=== PATIENT | male | born 1955 | race Caucasian/White ===

== ENCOUNTER 2020-11-07 19:48 | Emergency (ER) | payer OTHER ==
[~2020-11-07] VITALS: Ht 172.7 cm; Wt 106.6 kg
[2020-11-07] MEDS ORDERED: ACETAMINOPHEN 325 MG TAB PO ONE (20:45)
[2020-11-07] MEDS ORDERED: ACETAMINOPHEN 325 MG TAB ONE (20:47)
[2020-11-09] MEDS ORDERED: ESIDRIX25 MG PO (18:59)
[2020-11-09] MEDS ORDERED: LOPRESSOR25 MG PO (18:59)
[2020-11-09] MEDS ORDERED: ATORVASTATIN CA20 MG PO (18:59)
[2020-11-09] MEDS ORDERED: LOSARTAN POTAS100 MG PO (18:59)
[2020-11-09] MEDS ORDERED: METFORMIN HCL500 MG PO (18:59)
== END 2020-11-08 00:15 | disposition home or self-care (01) ==
LOC: ER 20:33
DX: R50.9 Fever, unspecified (principal); R05 Cough; U07.1 COVID-19; I10 Essential (primary) hypertension; E11.9 Type 2 diabetes mellitus without complications; E78.5 Hyperlipidemia, unspecified
CPT/HCPCS: 99283

== ENCOUNTER 2020-11-09 15:00 | Inpatient (IN) | payer OTHER ==
[~2020-11-09] VITALS: Ht 172.7 cm; Wt 102.7 kg
[2020-11-09] MEDS ORDERED: DEXAMETHASONE SOD PHOS INJ 4 MG/ML SDV IV ONE (15:45)
[2020-11-09 16:04] LABS: BASOPHILS % 0.2 % (0.0-1.0); HEMATOCRIT 42.2 % (38.2-49.6); LYMPHOCYTES # (AUTO) 1.2 (1.0-3.2); MEAN CORPUSCULAR HEMOGLOBIN 29.8 pg (28-32); MEAN CORPUSCULAR HGB CONC 35.5 g/dL (31-35); MEAN CORPUSCULAR VOLUME 83.7 fL (81-99); MONOCYTES # (AUTO) 0.5 (0.2-0.8); NEUTROPHILS # (AUTO) 7.7 (2.1-6.9); NEUTROPHILS % 81.2 % (38.7-80.0); PLATELET COUNT 224 x10e3/uL (140-360); RED BLOOD COUNT 5.04 x10e6/uL (4.3-5.7); RED CELL DISTRIBUTION WIDTH 12.1 % (11.7-14.4)
[2020-11-09 16:31] LABS: ALBUMIN 3.2 g/dL (3.5-5.0); ANION GAP 15.9 mmol/L (8-16); CALCIUM 8.5 mg/dL (8.4-10.2); CREATININE, SERUM 0.75 mg/dL (0.72-1.25)
[2020-11-09 16:35] LABS: ALBUMIN/GLOBULIN RATIO 0.9 (0.8-2.0); POTASSIUM 2.9 mmol/L (3.5-5.1)
[2020-11-09] MEDS ORDERED: POTASSIUM CHLORIDE 20 MEQ TAB CR PO STA (16:46)
[2020-11-09] MEDS ORDERED: LOSARTAN POTAS100 MG PO (18:59)
[2020-11-09] MEDS ORDERED: ESIDRIX25 MG PO (18:59)
[2020-11-09] MEDS ORDERED: LOPRESSOR25 MG PO (18:59)
[2020-11-09] MEDS ORDERED: METFORMIN HCL500 MG PO (18:59)
[2020-11-09] MEDS ORDERED: ATORVASTATIN CA20 MG PO (18:59)
[2020-11-10] VITALS (8 sets, daily range): BP systolic 135–167; BP diastolic 79–101
[2020-11-10] MEDS ORDERED: HYDRALAZINE HCL 20 MG/ML VIAL IV PRN (00:15)
[2020-11-10] MEDS ORDERED: PNEUMOCOCCAL VACCINE POLYVALENT 23 MCG/0.5 ML VIAL IM ONE (00:59)
[2020-11-10 07:12] LABS: BASOPHILS % 0.3 % (0.0-1.0); HEMATOCRIT 42.4 % (38.2-49.6); HEMOGLOBIN 15.2 g/dL (14.0-18.0); LYMPHOCYTES # (AUTO) 1.1 (1.0-3.2); LYMPHOCYTES % 11.8 % (18.0-39.1); MEAN CORPUSCULAR HEMOGLOBIN 29.6 pg (28-32); MEAN CORPUSCULAR HGB CONC 35.8 g/dL (31-35); MEAN CORPUSCULAR VOLUME 82.7 fL (81-99); MONOCYTES # (AUTO) 0.6 (0.2-0.8); MONOCYTES % 5.7 % (4.4-11.3); NEUTROPHILS # (AUTO) 7.8 (2.1-6.9); NEUTROPHILS % 81.3 % (38.7-80.0); PLATELET COUNT 202 x10e3/uL (140-360); RED BLOOD COUNT 5.13 x10e6/uL (4.3-5.7); RED CELL DISTRIBUTION WIDTH 11.8 % (11.7-14.4)
[2020-11-10 07:45] LABS: ALBUMIN 3.1 g/dL (3.5-5.0); ANION GAP 16.5 mmol/L (8-16); CALCIUM 8.7 mg/dL (8.4-10.2); CREATININE, SERUM 0.69 mg/dL (0.72-1.25); POTASSIUM 3.5 mmol/L (3.5-5.1)
[2020-11-10] MEDS ORDERED: ALBUTEROL SULFATE HFA 8GM INHALATION AEROSOL INH PRN (09:45)
[2020-11-10] MEDS ORDERED: DEXTROSE 50% SYRINGE 50 ML IV PRN (09:45)
[2020-11-10] MEDS ORDERED: BENZONATATE 100 MG CAP PO PRN (09:45)
[2020-11-10] MEDS ORDERED: HYDRALAZINE HCL 25 MG TAB PO PRN (09:45)
[2020-11-10] MEDS: FAMOTIDINE 20 MG/2 ML VIAL IV SCH ×2 (09:45→17:21)
[2020-11-10] MEDS ORDERED: ACETAMINOPHEN 325 MG TAB PO PRN (09:45)
[2020-11-10] MEDS ORDERED: ONDANSETRON HCL INJ 2MG/ML 2ML 2 MG/ML VIAL IV PRN (09:45)
[2020-11-10] MEDS ORDERED: ASCORBIC ACID 500 MG TAB PO SCH (10:30)
[2020-11-10] MEDS: METOPROLOL TARTRATE 25 MG TAB PO SCH ×2 (10:30→17:22)
[2020-11-10] MEDS: CHOLECALCIFEROL 1,000 UNIT TAB PO SCH (10:30)
[2020-11-10] MEDS: CEFTRIAXONE 1 GM in SODIUM CHLORIDE 0.9% 50ML 50 ML IV SCH ×2 (10:30→20:49)
[2020-11-10] MEDS ORDERED: DEXAMETHASONE SOD PHOS INJ 4 MG/ML SDV IV SCH (10:30)
[2020-11-10] MEDS ORDERED: SODIUM CHLORIDE 0.9% 50ML 50 ML ONE (10:41)
[2020-11-10] MEDS ORDERED: ZINC SULFATE 220 MG CAP PO SCH (11:00)
[2020-11-10] MEDS: INSULIN LISPRO 100 UNIT/1 ML 3ML VIAL SQ SCH ×3 (11:30→20:50)
[2020-11-10] MEDS ORDERED: REMDESIVIR 200MG 200 MG IV ONE (16:30)
[2020-11-10] MEDS: ENOXAPARIN SOD INJ 40 MG/0.4 ML SYR SC SCH (17:00)
[2020-11-10] MEDS: ASCORBIC ACID 500 MG TAB PO SCH (17:00)
[2020-11-10] MEDS: ATORVASTATIN 20 MG TAB PO SCH (20:49)
[2020-11-10] MEDS: INSULIN GLARGINE 100 UNITS/ML VIAL SQ SCH (20:50)
[2020-11-10] MEDS: IPRATROPIUM BROMIDE INHALER 12.9 GM INH INH SCH ×2 (21:25→21:27)
[2020-11-11] VITALS (10 sets, daily range): BP systolic 123–157; BP diastolic 78–98
[2020-11-11 05:52] LABS: BASOPHILS % 0.2 % (0.0-1.0); HEMATOCRIT 40.7 % (38.2-49.6); HEMOGLOBIN 14.2 g/dL (14.0-18.0); LYMPHOCYTES # (AUTO) 1.5 (1.0-3.2); LYMPHOCYTES % 13.6 % (18.0-39.1); MEAN CORPUSCULAR HEMOGLOBIN 29.3 pg (28-32); MEAN CORPUSCULAR HGB CONC 34.9 g/dL (31-35); MEAN CORPUSCULAR VOLUME 84.1 fL (81-99); MONOCYTES # (AUTO) 0.8 (0.2-0.8); MONOCYTES % 7.5 % (4.4-11.3); NEUTROPHILS # (AUTO) 8.6 (2.1-6.9); NEUTROPHILS % 77.5 % (38.7-80.0); PLATELET COUNT 225 x10e3/uL (140-360); RED BLOOD COUNT 4.84 x10e6/uL (4.3-5.7); RED CELL DISTRIBUTION WIDTH 11.9 % (11.7-14.4)
[2020-11-11 06:19] LABS: ANION GAP 14.4 mmol/L (8-16); CALCIUM 8.3 mg/dL (8.4-10.2); CREATININE, SERUM 0.77 mg/dL (0.72-1.25); POTASSIUM 3.4 mmol/L (3.5-5.1)
[2020-11-11] MEDS: ALBUTEROL SULFATE HFA 8GM INHALATION AEROSOL INH SCH ×3 (07:15→19:57)
[2020-11-11] MEDS: IPRATROPIUM BROMIDE INHALER 12.9 GM INH INH SCH ×3 (07:15→19:57)
[2020-11-11] MEDS: INSULIN LISPRO 100 UNIT/1 ML 3ML VIAL SQ SCH ×4 (07:30→20:20)
[2020-11-11] MEDS: CEFTRIAXONE 1 GM in SODIUM CHLORIDE 0.9% 50ML 50 ML IV SCH ×2 (09:51→21:00)
[2020-11-11] MEDS: FAMOTIDINE 20 MG/2 ML VIAL IV SCH ×2 (09:53→18:17)
[2020-11-11] MEDS: LOSARTAN POTASSIUM 25 MG TAB PO SCH (09:54)
[2020-11-11] MEDS: ASCORBIC ACID 500 MG TAB PO SCH ×2 (09:55→18:17)
[2020-11-11] MEDS: METOPROLOL TARTRATE 25 MG TAB PO SCH ×2 (09:55→18:17)
[2020-11-11] MEDS: ZINC SULFATE 50 MG CAP PO SCH (09:55)
[2020-11-11] MEDS: CHOLECALCIFEROL 1,000 UNIT TAB PO SCH (09:55)
[2020-11-11] MEDS: DEXAMETHASONE 4 MG TAB PO SCH (09:55)
[2020-11-11] MEDS ORDERED: POTASSIUM CHLORIDE 10MEQ EA PO ONE (10:30)
[2020-11-11] MEDS ORDERED: SODIUM CHLORIDE 0.9% 50ML 50 ML ONE (11:15)
[2020-11-11] MEDS ORDERED: IOPAMIDOL 370 MG/ML 200 ML INFUS..BTL INJ ONE (11:16)
[2020-11-11] MEDS: REMDESIVIR 100MG 100 MG IV SCH (16:02)
[2020-11-11] MEDS: ENOXAPARIN SOD INJ 40 MG/0.4 ML SYR SC SCH (18:17)
[2020-11-11] MEDS: ATORVASTATIN 20 MG TAB PO SCH (21:00)
[2020-11-11] MEDS: INSULIN GLARGINE 100 UNITS/ML VIAL SQ SCH (21:00)
[2020-11-12] VITALS (8 sets, daily range): BP systolic 127–179; BP diastolic 77–98
[2020-11-12] MEDS: IPRATROPIUM BROMIDE INHALER 12.9 GM INH INH SCH ×4 (01:02→21:35)
[2020-11-12] MEDS: ALBUTEROL SULFATE HFA 8GM INHALATION AEROSOL INH SCH ×4 (01:02→18:00)
[2020-11-12 06:50] LABS: BASOPHILS % 0.2 % (0.0-1.0); EOSINOPHILS % 0.1 % (0.0-6.0); HEMATOCRIT 38.6 % (38.2-49.6); HEMOGLOBIN 13.5 g/dL (14.0-18.0); LYMPHOCYTES # (AUTO) 1.7 (1.0-3.2); LYMPHOCYTES % 14.6 % (18.0-39.1); MEAN CORPUSCULAR HEMOGLOBIN 29.5 pg (28-32); MEAN CORPUSCULAR VOLUME 84.5 fL (81-99); MONOCYTES % 8.3 % (4.4-11.3); NEUTROPHILS # (AUTO) 8.6 (2.1-6.9); NEUTROPHILS % 74.8 % (38.7-80.0); PLATELET COUNT 168 x10e3/uL (140-360); RED BLOOD COUNT 4.57 x10e6/uL (4.3-5.7); RED CELL DISTRIBUTION WIDTH 11.9 % (11.7-14.4)
[2020-11-12 07:26] LABS: ALBUMIN 2.8 g/dL (3.5-5.0); ANION GAP 13.5 mmol/L (8-16); CALCIUM 7.9 mg/dL (8.4-10.2); CREATININE, SERUM 0.7 mg/dL (0.72-1.25); POTASSIUM 3.5 mmol/L (3.5-5.1)
[2020-11-12] MEDS: INSULIN LISPRO 100 UNIT/1 ML 3ML VIAL SQ SCH ×4 (07:30→20:17)
[2020-11-12] MEDS: FAMOTIDINE 20 MG/2 ML VIAL IV SCH ×2 (08:51→17:17)
[2020-11-12] MEDS: CEFTRIAXONE 1 GM in SODIUM CHLORIDE 0.9% 50ML 50 ML IV SCH ×2 (08:52→20:24)
[2020-11-12] MEDS: LOSARTAN POTASSIUM 25 MG TAB PO SCH (08:52)
[2020-11-12] MEDS: ZINC SULFATE 50 MG CAP PO SCH (08:53)
[2020-11-12] MEDS: DEXAMETHASONE 4 MG TAB PO SCH (08:53)
[2020-11-12] MEDS: ASCORBIC ACID 500 MG TAB PO SCH ×2 (08:53→17:17)
[2020-11-12] MEDS: CHOLECALCIFEROL 1,000 UNIT TAB PO SCH (08:53)
[2020-11-12] MEDS: METOPROLOL TARTRATE 25 MG TAB PO SCH ×2 (08:53→17:17)
[2020-11-12] MEDS: HYDROCHLOROTHIAZIDE 25 MG TAB PO SCH (14:24)
[2020-11-12] MEDS: REMDESIVIR 100MG 100 MG IV SCH (17:17)
[2020-11-12] MEDS: ENOXAPARIN SOD INJ 40 MG/0.4 ML SYR SC SCH (17:17)
[2020-11-12] MEDS: ATORVASTATIN 20 MG TAB PO SCH (20:25)
[2020-11-12] MEDS: INSULIN GLARGINE 100 UNITS/ML VIAL SQ SCH (20:30)
[2020-11-12] MEDS ORDERED: SODIUM CHLORIDE 0.9% 250ML 250 ML ONE (20:51)
[2020-11-13] VITALS (7 sets, daily range): BP systolic 117–154; BP diastolic 70–95
[2020-11-13] MEDS: ALBUTEROL SULFATE HFA 8GM INHALATION AEROSOL INH SCH ×4 (01:08→18:04)
[2020-11-13] MEDS: IPRATROPIUM BROMIDE INHALER 12.9 GM INH INH SCH ×4 (02:37→20:19)
[2020-11-13 07:07] LABS: BASOPHILS # (AUTO) 0.1 (0.0-0.1); BASOPHILS % 0.5 % (0.0-1.0); EOSINOPHILS % 0.2 % (0.0-6.0); HEMATOCRIT 42.3 % (38.2-49.6); HEMOGLOBIN 14.6 g/dL (14.0-18.0); LYMPHOCYTES # (AUTO) 1.8 (1.0-3.2); LYMPHOCYTES % 13.6 % (18.0-39.1); MEAN CORPUSCULAR HEMOGLOBIN 29.9 pg (28-32); MEAN CORPUSCULAR HGB CONC 34.5 g/dL (31-35); MEAN CORPUSCULAR VOLUME 86.7 fL (81-99); MONOCYTES # (AUTO) 1.1 (0.2-0.8); MONOCYTES % 8.4 % (4.4-11.3); NEUTROPHILS # (AUTO) 9.7 (2.1-6.9); NEUTROPHILS % 74.9 % (38.7-80.0); PLATELET COUNT 181 x10e3/uL (140-360); RED BLOOD COUNT 4.88 x10e6/uL (4.3-5.7); RED CELL DISTRIBUTION WIDTH 11.9 % (11.7-14.4)
[2020-11-13] MEDS: INSULIN LISPRO 100 UNIT/1 ML 3ML VIAL SQ SCH ×4 (07:30→21:00)
[2020-11-13 07:31] LABS: ALBUMIN 2.8 g/dL (3.5-5.0); ALBUMIN/GLOBULIN RATIO 0.9 (0.8-2.0); CALCIUM 8.2 mg/dL (8.4-10.2); CREATININE, SERUM 0.74 mg/dL (0.72-1.25)
[2020-11-13] MEDS: DEXAMETHASONE 4 MG TAB PO SCH (09:01)
[2020-11-13] MEDS: FAMOTIDINE 20 MG/2 ML VIAL IV SCH ×2 (09:01→16:51)
[2020-11-13] MEDS: LOSARTAN POTASSIUM 25 MG TAB PO SCH (09:01)
[2020-11-13] MEDS: CEFTRIAXONE 1 GM in SODIUM CHLORIDE 0.9% 50ML 50 ML IV SCH ×2 (09:01→21:57)
[2020-11-13] MEDS: METOPROLOL TARTRATE 25 MG TAB PO SCH ×2 (09:02→16:52)
[2020-11-13] MEDS: ASCORBIC ACID 500 MG TAB PO SCH ×2 (09:02→16:52)
[2020-11-13] MEDS: HYDROCHLOROTHIAZIDE 25 MG TAB PO SCH (09:02)
[2020-11-13] MEDS: CHOLECALCIFEROL 1,000 UNIT TAB PO SCH (09:02)
[2020-11-13] MEDS: ZINC SULFATE 50 MG CAP PO SCH (09:03)
[2020-11-13] MEDS: REMDESIVIR 100MG 100 MG IV SCH (14:25)
[2020-11-13] MEDS: ENOXAPARIN SOD INJ 40 MG/0.4 ML SYR SC SCH (16:52)
[2020-11-13] MEDS: ATORVASTATIN 20 MG TAB PO SCH (21:57)
[2020-11-13] MEDS: INSULIN GLARGINE 100 UNITS/ML VIAL SQ SCH (21:58)
[2020-11-14] VITALS (7 sets, daily range): BP systolic 111–140; BP diastolic 75–87
[2020-11-14] MEDS: ALBUTEROL SULFATE HFA 8GM INHALATION AEROSOL INH SCH ×4 (00:59→18:00)
[2020-11-14] MEDS: IPRATROPIUM BROMIDE INHALER 12.9 GM INH INH SCH ×3 (01:00→13:00)
[2020-11-14] MEDS: INSULIN LISPRO 100 UNIT/1 ML 3ML VIAL SQ SCH ×4 (07:30→21:33)
[2020-11-14 08:19] LABS: FERRITIN 827.03 ng/mL (21.81-274.66)
[2020-11-14 08:29] LABS: BASOPHILS % 0.2 % (0.0-1.0); EOSINOPHILS % 0.1 % (0.0-6.0); HEMATOCRIT 42.9 % (38.2-49.6); HEMOGLOBIN 14.9 g/dL (14.0-18.0); LYMPHOCYTES # (AUTO) 1.9 (1.0-3.2); MEAN CORPUSCULAR HEMOGLOBIN 29.4 pg (28-32); MEAN CORPUSCULAR HGB CONC 34.7 g/dL (31-35); MEAN CORPUSCULAR VOLUME 84.8 fL (81-99); MONOCYTES # (AUTO) 0.9 (0.2-0.8); MONOCYTES % 7.4 % (4.4-11.3); NEUTROPHILS % 74.2 % (38.7-80.0); PLATELET COUNT 206 x10e3/uL (140-360); RED BLOOD COUNT 5.06 x10e6/uL (4.3-5.7); RED CELL DISTRIBUTION WIDTH 12.1 % (11.7-14.4)
[2020-11-14 08:47] LABS: ANION GAP 17.1 mmol/L (8-16); CALCIUM 8.3 mg/dL (8.4-10.2); CREATININE, SERUM 0.71 mg/dL (0.72-1.25); POTASSIUM 4.1 mmol/L (3.5-5.1)
[2020-11-14] MEDS: FAMOTIDINE 20 MG/2 ML VIAL IV SCH ×2 (10:04→17:01)
[2020-11-14] MEDS: LOSARTAN POTASSIUM 25 MG TAB PO SCH (10:05)
[2020-11-14] MEDS: DEXAMETHASONE 4 MG TAB PO SCH (10:05)
[2020-11-14] MEDS: ASCORBIC ACID 500 MG TAB PO SCH ×2 (10:06→17:01)
[2020-11-14] MEDS: CHOLECALCIFEROL 1,000 UNIT TAB PO SCH (10:06)
[2020-11-14] MEDS: ZINC SULFATE 50 MG CAP PO SCH (10:06)
[2020-11-14] MEDS: METOPROLOL TARTRATE 25 MG TAB PO SCH ×2 (10:06→17:01)
[2020-11-14] MEDS: HYDROCHLOROTHIAZIDE 25 MG TAB PO SCH (10:06)
[2020-11-14] MEDS: REMDESIVIR 100MG 100 MG IV SCH (13:19)
[2020-11-14] MEDS: ENOXAPARIN SOD INJ 40 MG/0.4 ML SYR SC SCH (17:01)
[2020-11-14] MEDS: ATORVASTATIN 20 MG TAB PO SCH (21:24)
[2020-11-14] MEDS: INSULIN GLARGINE 100 UNITS/ML VIAL SQ SCH (21:32)
[2020-11-15] VITALS (8 sets, daily range): BP systolic 95–144; BP diastolic 65–93
[2020-11-15 06:52] LABS: BASOPHILS % 0.1 % (0.0-1.0); EOSINOPHILS % 0.1 % (0.0-6.0); HEMATOCRIT 42.2 % (38.2-49.6); HEMOGLOBIN 14.7 g/dL (14.0-18.0); LYMPHOCYTES # (AUTO) 1.7 (1.0-3.2); LYMPHOCYTES % 12.7 % (18.0-39.1); MEAN CORPUSCULAR HEMOGLOBIN 29.6 pg (28-32); MEAN CORPUSCULAR HGB CONC 34.8 g/dL (31-35); MEAN CORPUSCULAR VOLUME 85.1 fL (81-99); MONOCYTES % 7.5 % (4.4-11.3); NEUTROPHILS # (AUTO) 10.5 (2.1-6.9); NEUTROPHILS % 77.2 % (38.7-80.0); PLATELET COUNT 243 x10e3/uL (140-360); RED BLOOD COUNT 4.96 x10e6/uL (4.3-5.7); RED CELL DISTRIBUTION WIDTH 11.9 % (11.7-14.4)
[2020-11-15 07:30] LABS: ALBUMIN 2.9 g/dL (3.5-5.0); ANION GAP 15.2 mmol/L (8-16); CALCIUM 8.6 mg/dL (8.4-10.2); CREATININE, SERUM 0.72 mg/dL (0.72-1.25); POTASSIUM 4.2 mmol/L (3.5-5.1)
[2020-11-15] MEDS: INSULIN LISPRO 100 UNIT/1 ML 3ML VIAL SQ SCH ×4 (07:30→21:37)
[2020-11-15] MEDS: FAMOTIDINE 20 MG/2 ML VIAL IV SCH (09:28)
[2020-11-15] MEDS: LOSARTAN POTASSIUM 25 MG TAB PO SCH (09:29)
[2020-11-15] MEDS: DEXAMETHASONE 4 MG TAB PO SCH (09:29)
[2020-11-15] MEDS: HYDROCHLOROTHIAZIDE 25 MG TAB PO SCH (09:29)
[2020-11-15] MEDS: ASCORBIC ACID 500 MG TAB PO SCH ×2 (09:30→16:39)
[2020-11-15] MEDS: ZINC SULFATE 50 MG CAP PO SCH (09:30)
[2020-11-15] MEDS: METOPROLOL TARTRATE 25 MG TAB PO SCH ×2 (09:30→17:18)
[2020-11-15] MEDS: CHOLECALCIFEROL 1,000 UNIT TAB PO SCH (09:30)
[2020-11-15] MEDS: FAMOTIDINE 20 MG TAB PO SCH (16:37)
[2020-11-15] MEDS: ENOXAPARIN SOD INJ 40 MG/0.4 ML SYR SC SCH (17:18)
[2020-11-15] MEDS: INSULIN GLARGINE 100 UNITS/ML VIAL SQ SCH (21:38)
[2020-11-15] MEDS: ATORVASTATIN 20 MG TAB PO SCH (21:47)
[2020-11-16] VITALS (8 sets, daily range): BP systolic 97–135; BP diastolic 64–90
[2020-11-16] MEDS: INSULIN LISPRO 100 UNIT/1 ML 3ML VIAL SQ SCH ×4 (07:30→20:48)
[2020-11-16] MEDS: FAMOTIDINE 20 MG TAB PO SCH ×2 (08:20→16:30)
[2020-11-16 09:12] LABS: BASOPHILS % 0.2 % (0.0-1.0); EOSINOPHILS % 0.1 % (0.0-6.0); HEMATOCRIT 43.3 % (38.2-49.6); HEMOGLOBIN 14.9 g/dL (14.0-18.0); LYMPHOCYTES # (AUTO) 1.9 (1.0-3.2); LYMPHOCYTES % 16.6 % (18.0-39.1); MEAN CORPUSCULAR HEMOGLOBIN 29.6 pg (28-32); MEAN CORPUSCULAR HGB CONC 34.4 g/dL (31-35); MEAN CORPUSCULAR VOLUME 85.9 fL (81-99); MONOCYTES # (AUTO) 0.4 (0.2-0.8); MONOCYTES % 3.5 % (4.4-11.3); NEUTROPHILS % 77.6 % (38.7-80.0); PLATELET COUNT 264 x10e3/uL (140-360); RED BLOOD COUNT 5.04 x10e6/uL (4.3-5.7); RED CELL DISTRIBUTION WIDTH 12.1 % (11.7-14.4)
[2020-11-16 09:32] LABS: ALBUMIN 2.9 g/dL (3.5-5.0); ANION GAP 13.9 mmol/L (8-16); CALCIUM 8.7 mg/dL (8.4-10.2); CREATININE, SERUM 0.73 mg/dL (0.72-1.25); POTASSIUM 3.9 mmol/L (3.5-5.1)
[2020-11-16] MEDS: HYDROCHLOROTHIAZIDE 25 MG TAB PO SCH (09:37)
[2020-11-16] MEDS: LOSARTAN POTASSIUM 25 MG TAB PO SCH (09:37)
[2020-11-16] MEDS: DEXAMETHASONE 4 MG TAB PO SCH (09:37)
[2020-11-16] MEDS: METOPROLOL TARTRATE 25 MG TAB PO SCH ×2 (09:38→17:00)
[2020-11-16] MEDS: ASCORBIC ACID 500 MG TAB PO SCH ×2 (09:38→17:00)
[2020-11-16] MEDS: ZINC SULFATE 50 MG CAP PO SCH (09:38)
[2020-11-16] MEDS: CHOLECALCIFEROL 1,000 UNIT TAB PO SCH (09:38)
[2020-11-16] MEDS: IPRATROPIUM BROMIDE INHALER 12.9 GM INH INH SCH ×3 (11:00→20:10)
[2020-11-16] MEDS: ALBUTEROL SULFATE HFA 8GM INHALATION AEROSOL INH SCH ×2 (11:00→20:10)
[2020-11-16] MEDS: ENOXAPARIN SOD INJ 40 MG/0.4 ML SYR SC SCH (17:00)
[2020-11-16] MEDS: ATORVASTATIN 20 MG TAB PO SCH (20:29)
[2020-11-16] MEDS: INSULIN GLARGINE 100 UNITS/ML VIAL SQ SCH (20:45)
[2020-11-17 00:16] VITALS: BP 135/84
[2020-11-17 05:00] VITALS: BP 109/75
[2020-11-17 06:32] LABS: BASOPHILS % 0.2 % (0.0-1.0); EOSINOPHILS % 0.1 % (0.0-6.0); HEMATOCRIT 42.9 % (38.2-49.6); HEMOGLOBIN 14.7 g/dL (14.0-18.0); LYMPHOCYTES # (AUTO) 2.4 (1.0-3.2); LYMPHOCYTES % 17.4 % (18.0-39.1); MEAN CORPUSCULAR HEMOGLOBIN 29.5 pg (28-32); MEAN CORPUSCULAR HGB CONC 34.3 g/dL (31-35); MEAN CORPUSCULAR VOLUME 86.1 fL (81-99); MONOCYTES # (AUTO) 1.5 (0.2-0.8); MONOCYTES % 10.4 % (4.4-11.3); NEUTROPHILS # (AUTO) 9.8 (2.1-6.9); NEUTROPHILS % 70.3 % (38.7-80.0); PLATELET COUNT 297 x10e3/uL (140-360); RED BLOOD COUNT 4.98 x10e6/uL (4.3-5.7); RED CELL DISTRIBUTION WIDTH 12.1 % (11.7-14.4)
[2020-11-17 06:59] LABS: ALBUMIN 2.9 g/dL (3.5-5.0); CALCIUM 8.5 mg/dL (8.4-10.2); CREATININE, SERUM 0.77 mg/dL (0.72-1.25)
[2020-11-17] MEDS: IPRATROPIUM BROMIDE INHALER 12.9 GM INH INH SCH ×2 (07:28→12:49)
[2020-11-17] MEDS: ALBUTEROL SULFATE HFA 8GM INHALATION AEROSOL INH SCH ×2 (07:28→12:49)
[2020-11-17] MEDS: INSULIN LISPRO 100 UNIT/1 ML 3ML VIAL SQ SCH ×2 (07:30→11:30)
[2020-11-17 08:00] VITALS: BP 107/75
[2020-11-17] MEDS: FAMOTIDINE 20 MG TAB PO SCH (08:56)
[2020-11-17] MEDS: DEXAMETHASONE 4 MG TAB PO SCH (08:57)
[2020-11-17] MEDS: ZINC SULFATE 50 MG CAP PO SCH (08:59)
[2020-11-17] MEDS: METOPROLOL TARTRATE 25 MG TAB PO SCH (08:59)
[2020-11-17] MEDS: HYDROCHLOROTHIAZIDE 25 MG TAB PO SCH (08:59)
[2020-11-17] MEDS: ASCORBIC ACID 500 MG TAB PO SCH (08:59)
[2020-11-17] MEDS: CHOLECALCIFEROL 1,000 UNIT TAB PO SCH (08:59)
[2020-11-17] MEDS: LOSARTAN POTASSIUM 25 MG TAB PO SCH (09:00)
[2020-11-17 09:46] VITALS: BP 107/75
[2020-11-17 12:00] VITALS: BP 90/73
[2020-11-17] MEDS ORDERED: ONDANSETRON HCL 4 MG ORAL DISINTEGRATING TAB PO PRN (12:30)
== END 2020-11-17 14:30 | disposition home or self-care (01) | DRG 871 ==
LOC: ER 15:20 → ERHOLD 16:58 → MED/SURG3 11-10 01:00
PROVIDERS: ADMIT Internal Medicine; ATTEND Internal Medicine
PROC: 3E0333Z Introduction of Anti-inflammatory into Peripheral Vein, Percutaneous Approach (ICD-10-PCS; 2020-11-09)
PROC: XW033E5 Introduction of Remdesivir Anti-infective into Peripheral Vein, Percutaneous Approach, New Technology Group 5 (ICD-10-PCS; principal; 2020-11-10)
DX: A41.89 Other specified sepsis (principal); U07.1 COVID-19; J96.01 Acute respiratory failure with hypoxia; J12.82 Pneumonia due to coronavirus disease 2019; E87.1 Hypo-osmolality and hyponatremia; I10 Essential (primary) hypertension; E78.5 Hyperlipidemia, unspecified; E66.9 Obesity, unspecified; Z68.34 Body mass index [BMI] 34.0-34.9, adult; E87.6 Hypokalemia; T38.0X5A Adverse effect of glucocorticoids and synthetic analogues, initial encounter; E11.65 Type 2 diabetes mellitus with hyperglycemia; Z79.84 Long term (current) use of oral hypoglycemic drugs
CPT/HCPCS: 36415; 71045; 71260; 80053; 82728; 82948; 83615; 85025; 86140; 87070; 87205; 93005; 96372; 99284; J0456; J0696; J1100; J1650; J1815; J7050; Q9967; U0002

== ENCOUNTER 2024-10-09 17:35 | Emergency (ER) | payer MEDICARE, OTHER ==
[~2024-10-09] VITALS: Ht 170.2 cm; Wt 108.9 kg
[~2024-10-09 17:35] MED LIST: ATORVASTATIN CA20 MG PO; ESIDRIX25 MG PO; LOPRESSOR25 MG PO; LOSARTAN POTAS100 MG PO; METFORMIN HCL500 MG PO
[2024-10-09] MEDS ORDERED: AMLODIPINE BESYL5 MG PO (17:50)
[2024-10-09 17:59] VITALS: BP 155/90
[2024-10-09] MEDS: NITROGLYCERIN 2% OINT 1 GM PKT TOP STA (17:59)
[2024-10-09 19:17] VITALS: PULSE 60; RESP 16; TEMP 98; O2SAT 98
== END 2024-10-09 19:57 | disposition home or self-care (01) ==
LOC: ER 17:47
DX: S90.121A Contusion of right lesser toe(s) without damage to nail, initial encounter (principal); M77.31 Calcaneal spur, right foot; X58.XXXA Exposure to other specified factors, initial encounter; Y92.89 Other specified places as the place of occurrence of the external cause; I10 Essential (primary) hypertension; E11.9 Type 2 diabetes mellitus without complications; I48.91 Unspecified atrial fibrillation; E78.5 Hyperlipidemia, unspecified
CPT/HCPCS: 99283